=== PATIENT | male | born 1985 | race Caucasian/White ===

== ENCOUNTER 2022-05-10 19:13 | Emergency (ER) | payer OTHER, SELFPAY ==
[2022-05-10 19:15] VITALS: BP 148/81; PULSE 96; RESP 16; TEMP 36.7; O2SAT 100
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
[2022-05-10] MEDS: ACETAMINOPHEN 500 MG TABLET 1000 MG PO (20:51)
[2022-05-10] MEDS: NAPROXEN 500 MG TABLET PO (20:51)
[2022-05-10 21:10] VITALS: BP 148/91; PULSE 86; RESP 18; O2SAT 97
== END 2022-05-10 21:11 | disposition home or self-care (01) ==
PROVIDERS: Emergency Provider Emergency Medicine
DX: S16.1XXA Strain of muscle, fascia and tendon at neck level, initial encounter (principal); V64.5XXA Driver of heavy transport vehicle injured in collision with heavy transport vehicle or bus in traffic accident, initial encounter
CPT/HCPCS: 99283; A9270

== ENCOUNTER 2024-06-25 02:56 | Emergency (ER) | payer SELFPAY ==
--- NOTE | ~2024-06-25 | XR_ITS ---
EXAMINATION: XR ankle RT min 3V DATE: 06/25/2024 03:28 INDICATION: Right ankle injury TECHNIQUE: Anteroposterior, oblique, mortise, and lateral views of the right ankle were obtained. COMPARISON: None. FINDINGS: Nondisplaced transverse fracture of the lateral malleolus occurring 1 cm below level of the tibiotala r joint line. Alignment remains essentially anatomic with a congruent ankle mortise. No other fractur es identified. Joint spaces are normal. Soft tissue swelling about the lateral malleolus. No evident ankle joint effusion. IMPRESSION: 1. Nondisplaced Winter type A fracture extending across the lateral malleolus. Reviewed, dictated and finalized at location A.
[2024-06-25 03:05] VITALS: BP 153/95; PULSE 91; RESP 16; TEMP 36.6; O2SAT 98
--- NOTE | 2024-06-25 04:19 | ED_ITS ---
HPI - General Adult General Chief complaint: Extremity Injury, Lower Stated complaint: right ankle pain Time Seen by Provider: 06/25/24 03:00 History of Present Illness HPI narrative: Patient is a 39-year-old male who presents emergency department this evening complaining of right ankle swelling and pain. Patient states that approximately 24 hours ago he rolled his right ankle. Patient states that since then he has been icing and did go to the nearest pharmacy and bought an ankle brace to help with his pain. He has been taking Excedrin for pain relief with minimal improvement of his symptoms. Denies any additional injuries or concerns. Related Data Allergies Allergy/AdvReac Type Severity Reaction Status Date / Time sertraline (From Zoloft) Allergy Rash Verified 06/25/24 02:59 Review of Systems Review of Systems: All systems are reviewed and are negative unless stated otherwise in the HPI. Exam Narrative: General: Alert, awake, afebrile, in no acute distress. HEENT: PERRL, no rhinorrhea, no post nasal drip, oropharynx clear. Neck: Trachea midline, no JVD, no lymphadenopathy. Cardiovascular: Regular rate and rhythm, no murmurs, rubs or gallops, no peripheral edema. Respiratory: Clear to auscultation bilaterally, no tachypnea, no wheezing, no rhonchi, no rubs, no respiratory distress. Abdomen: Soft, nontender, nondistended, no rebound, no guarding, no peritoneal signs. Musculoskeletal: Swelling noted to the right ankle along the lateral malleoli with some ecchymosis, intact PT and DP pulse. Skin: No rashes or petechia, no signs of infection. Psychiatric: Alert and oriented, normal behavior and judgment for situation. Neurological: Alert and oriented to person, place, and time. Follows all commands. No focal deficits, speech is clear and fluent. Course Vital Signs Vital signs: Vital Signs Temperature 97.9 F 06/25/24 03:05 Pulse Rate 91 06/25/24 03:05 Respiratory Rate 16 06/25/24 03:05 Blood Pressure 153/95 H 06/25/24 03:05 Pulse Oximetry 98 06/25/24 03:05 Oxygen Delivery Room Air 06/25/24 03:05 Temperature 97.9 F 06/25/24 03:05 Pulse Rate 91 06/25/24 03:05 Respiratory Rate 16 06/25/24 03:05 Blood Pressure 153/95 H 06/25/24 03:05 Pulse Oximetry 98 06/25/24 03:05 Oxygen Delivery Room Air 06/25/24 03:05 Medical Decision Making MDM Narrative Medical decision making narrative: The patient was evaluated by myself in the emergency department. History is obtained from patient who is an independent historian and physical exam was performed. External medical records were reviewed at this time. Imaging studies obtained included right ankle x-ray which was independently interpreted by me revealing horizontal nondisplaced fracture through the distal fibula below the level of the tolerate dome, no medial or lateral space widening, soft tissue swelling around the ankle. Patient was informed of these findings at bedside. Administered 600 mg of oral ibuprofen and placed in a posterior short-leg with stirrup splint. Patient was informed that he will need to follow-up with orthopedics within the next 3-5 days and patient is in agreement. Differential diagnosis considerations include fractures, dislocation, ankle sprain. Comorbidities impacting this visit include none. I have evaluated and discussed social determinants of health with the patient that could potentially impact subsequent diagnosis and treatment plans. On repeat assessment of the patient, reevaluation revealed that the patient is doing well and is in no acute distress. Patient symptoms have improved since he arrived to our emergency department. Repeat vital signs were all reviewed and noted to be stable. Differential diagnosis and treatment plan were discussed with the patient at bedside. Patient agrees with discussion and after shared medical decision making agrees with discharge. All questions were answered to the patient's satisfaction. Patient will follow up with Orthopedics in 3-5 days. A script for [place] was sent to patient's pharmacy to use as needed for. Patient was provided with strict return precautions and instructed to return to the emergency department if any new or worsening symptoms develop. The patient was discharged in stable condition. Vital Signs Vital Signs: Vital Signs Temperature 97.9 F 06/25/24 03:05 Pulse Rate 91 06/25/24 03:05 Respiratory Rate 16 06/25/24 03:05 Blood Pressure 153/95 H 06/25/24 03:05 Pulse Oximetry 98 06/25/24 03:05 Oxygen Delivery Room Air 06/25/24 03:05 Temperature 97.9 F 06/25/24 03:05 Pulse Rate 91 06/25/24 03:05 Respiratory Rate 16 06/25/24 03:05 Blood Pressure 153/95 H 06/25/24 03:05 Pulse Oximetry 98 06/25/24 03:05 Oxygen Delivery Room Air 06/25/24 03:05 Discharge Plan Discharge Clinical Impression: Lateral malleolar fracture Patient Disposition: Home Condition: Improved Instructions: Antibiotic Form, Ankle Fracture (DC) Additional Instructions: Please follow-up with your orthopedic surgeon you were provided with today within the next 3-5 days. Use the prescribed pain medication as needed for pain. Return to the ED if any new or worsening symptoms develop. Patient Language: Mongolian Prescriptions: New hydrocodone-acetaminophen 5-325 mg tablet 1 tablet PO Q8H PRN (Reason: pain) Qty: 10 0RF No Action naproxen 500 mg tablet 500 mg PO BID Qty: 20 0RF cyclobenzaprine 10 mg tablet 10 mg PO TID PRN (Reason: muscle spasm) Qty: 14 0RF Follow-up/Referrals: PHYSICIAN,BEHAVIORAL HEALTH WORKER [Primary Care Provider] - Harsha Amos MD [Physician] - 3 Days Time of Disposition: 04:20
[2024-06-25] MEDS: IBUPROFEN 600 MG TABLET PO (04:24)
[2024-06-25 04:45] VITALS: BP 156/78; PULSE 80; RESP 16; TEMP 36.6; O2SAT 97
--- OUTSIDE RECORDS SUMMARY | 2024-06-25 15:48 | XMS_ITS | Continuity of Care Document ---
Author Organization [facility] [place] Address [address] [place] [address] [address] [place] [address] Phone Care Team Providers Care Lap Machine Operator Name Role Phone Lars Crane PT Unavailable Unavailable Procedures Procedure Date Progress Note Therapeutic Activities Neuromuscular Re-Ed Therapeutic Exercise Hot or Cold Pack Therapeutic Activities Neuromuscular Re-Ed Therapeutic Exercise Hot or Cold Pack Therapeutic Activities Neuromuscular Re-Ed Therapeutic Exercise Hot or Cold Pack Therapeutic Activities Neuromuscular Re-Ed Therapeutic Exercise Manual Therapy Hot or Cold Pack Therapeutic Activities Neuromuscular Re-Ed Therapeutic Exercise Manual Therapy Hot or Cold Pack Therapeutic Activities Neuromuscular Re-Ed Manual Therapy Hot or Cold Pack Therapeutic Activities Neuromuscular Re-Ed Manual Therapy Hot or Cold Pack PT Evaluation Low Complexity Therapeutic Activities Neuromuscular Re-Ed Manual Therapy Advance Directives Directive Yes / No Effective Date File Name No Information Encounters Encounter Description Practice Location Reason(s) For Visit Diagnoses Date Provider Providers Copied on Encounter [facility] [address] [address], [place], [place], [id number], tel:[phone] [place] No Information Apr-2 5-202 3 Rosa Maria Lars. . [facility], [place], [place], [id number], tel:[phone] [facility] No Information Apr-1 7-202 3 Rosa Maria Lars. . Referring Provider: [address], [place], [address]. tel:[phone] [facility] [address], [place], [place], [id number], tel:[phone] [facility] No Information Apr-1 2-202 3 Rosa Maria Lars. . Referring Provider: Any [address], [place], [address]. tel:[phone] [facility] [address], [place], [place], [id number], tel:[phone] [facility] No Information Apr-1 0-202 3 Rosa Maria Lars. . Referring Provider: Any [address], [place], [address]. tel:[phone] [facility] [address], [place], [place], [address], tel:[phone] [facility] No Information Apr-0 6-202 3 Rosa Maria Lars. . Referring Provider: Any [address], [place], [address]. tel:[phone] [facility] [address], [place], [place], [address], tel:[phone] [facility] No Information Apr-0 4-202 3 Rosa Maria Lars. . Referring Provider: Any [address], [place], [address]. tel:[phone] [facility], [address], [place], [place], [id number], tel:[phone] [facility] No Information Apr- 3 Rosa Maria Lars. . Referring Provider: Chandrakant Dsouza, [address], [place], [address]. tel:[phone] [facility] [address], [place], [place], [id number], tel:[phone] [facility] No Information 3 Rosa Maria Lars. . Referring Provider: Chandrakant Dsouza [address], [place], [address]. tel:[phone] [facility] [address] [place] [address] [address], [place], [place], [id number], tel:[phone] [facility] No Information 3 Rosa Maria Lars. . Referring Provider: Chandrakant Dsouza [address] [address], [place], [address]. tel:[phone] Family History Family Member Type Diagnosis Age At Onset No Information Payers Payer name Insurance type Covered constitution party ID Authorviolakrista lynn(s) [employer] 00 Social History Type Description Quantity Date Captured Comments Sex Male Smoking Status No Information Chief Complaint And Reason For Visit No Information Reason For Referral Reason For Referral No Information Plan Of Treatment Date Type Action Status Goal Tobacco Cessation Counseling completed Goal Tobacco cessation counseling completed Referral Ordered: Depression: Depression management program timeframe: 1 Day. (related to Depression) ordered Referral Ordered: Clinical Psychology (related to Depression) ordered Referral Ordered: Referrals: Specialist. Evaluate and Treat (related to Adjustment disorder with depressed mood) ordered History Of Present Illness Encounter Date Complaint History Of Prese nt Illness No Information Functional Status Date Functional Assessmen t No Information Instructions Date Instruction Additional Infor mation Giving encouragement to exercise Related to Overweight Giving encouragement to exercise Related to Overweight Assessments Type Assessment Date No Information Patient Care Teams Name Effective Dates (start - stop) Status Members No Information
--- OUTSIDE RECORDS SUMMARY | 2024-06-25 15:49 | XMS_ITS | Continuity of Care Document ---
Author Organization [facility] [place] Address [address] [place] [address] [address] [place] [address] Phone Care Team Providers Care Digital Strategist Name Role Phone Lars Crane PT Unavailable [...] Diagnoses Date Provider Providers Copied on Encounter [facility] [address] [address], [place], [place], [id number], tel:[phone] [place] No Information Apr-2 5-202 3 Rosa Maria Lars. . [facility], [place], [place], [id number], tel:[phone] [facility] No Information Apr-1 7-202 3 Rosa Maria Lars. . Referring Provider: Any [address], [place], [address]. tel:[phone] [facility] [address], [place], [place], [id number], tel:[phone] [facility] No Information Apr-1 2-202 3 Rosa Maria Lars. . Referring Provider: Any K[address], [place], [address]. tel:[phone] [facility] [address], [place], [place], [address], tel:[phone] [facility] No Information Apr-1 0-202 3 Rosa Maria Lars. . Referring Provider: Any K[address], [place], [address]. tel:[phone] [facility] [address], [place], [place], [address], tel:[phone] [facility] No Information Apr-0 6-202 3 Rosa Maria Lars. . Referring Provider: Any [address], [place], [address]. tel:[phone] [facility] [address], [place], [place], [address], tel:[phone] [facility] No Information Apr-0 4-202 3 Rosa Maria Lars. . Referring Provider: Any [address], [place], [address]. tel:[phone] [facility], [address], [place], [place], [address], tel:[phone] [facility] No Information Apr- 3 Rosa Maria Lars. . Referring Provider: Chandrakant Dsouza, [address] [address], [place], [address]. tel:[phone] [facility] [address], [place], [place], [address], tel:[phone] [facility] No Information 3 Rosa Maria Lars. . Referring Provider: Chandrakant Dsouza [address] [address], [place], [address]. tel:[phone] [facility] [address] [place] [address] [address], [place], [place], [id number], tel:[phone] [facility] No Information 3 Rosa Maria Lars. . Referring Provider: Chandrakant Dsouza [address] [address], [place], [address]. tel:[phone] Family History Family Member Type Diagnosis Age At Onset No Information Payers Payer name Insurance type Covered alliance party ID Authorviolakrista lynn(s) [employer] [...]
== END 2024-06-25 04:46 | disposition home or self-care (01) ==
PROVIDERS: Emergency Provider Emergency Medicine
DX: S82.61XA Displaced fracture of lateral malleolus of right fibula, initial encounter for closed fracture (principal); X58.XXXA Exposure to other specified factors, initial encounter
CPT/HCPCS: 29515; 73610; 99284; A9270